=== PATIENT | male | born 1935 | race African-American/Black ===

== ENCOUNTER 2017-07-31 12:51 | Emergency (ER) | payer MEDICARE, BC ==
[~2017-07-31] VITALS: Ht 175.3 cm; Wt 67.6 kg
--- NOTE | ~2017-07-31 | EKG ---
PATIENT: PATITO AMANDA UNIT #: [id number] Ventricular Rate: 69 BPM Atrial Rate: 69 BPM P-R Interval: 186 ms QRS Duration: 98 ms Q-T Interval: 416 ms QTC Calculation(Bezet): 445 ms P [place]: 57 degrees Calculated R [place]: 10 degrees Calculated T [place]: 48 degrees Diagnosis Line: Sinus rhythm with marked sinus arrhythmia Diagnosis Line: Nonspecific T wave abnormality Diagnosis Line: Abnormal ECG Diagnosis Line: When compared with ECG of 15-NOV-2015 12:01, Diagnosis Line: Incomplete right bundle branch block is no longer Diagnosis Line: Present Diagnosis Line: Confirmed by MELODIE NAVARRETE MD ([id number]) on Diagnosis Line: 08/02/2017 10:50:23 AM INTERPRETING MD: ROSALBA PUGH
--- NOTE | ~2017-07-31 | CT71 ---
[facility] A Service of [facility] RADIOLOGY TEXT RESULTS PATIENT: PATITO AMANDA LOCATION: [facility] : 34 UNIT #: [id number] AGE: [address]: Jamie Jc MD SEX: M ORDER DR: [id number] [facility] [address] [place], [place] [address] [id number] E MR#: [id number] Acc #: [id number] NAME: PATITO AMANDA : 1935 SEX: M STUDY DATE/TIME: 07/31/2017 15:12 UNIT: [facility] ROOM: STUDY DESCRIPTION: CT Head Wo Contrast Attending Physician: Jamie Jc M.D. Ordering Physician: Jamie Jc M.D. Primary Care Physician: No Primary Care Physician MEDICAL IMAGING REPORT This report is preliminary unless electronic signature is present EXAM CT of the head without contrast. HISTORY Dizziness and confusion today. COMPARISON 09/05/2010 TECHNIQUE Unenhanced images were obtained through the brain. This CT exam was performed with one or more of the following radiation dose reduction techniques: automatic exposure control, adjustment of mA and/or kV according to patient size, and iterative reconstruction. FINDINGS There is generalized atrophy. Symmetric small vessel ischemic changes. There has been no change. IMPRESSION Stable atrophy and small vessel ischemic changes. No acute abnormalities. Dictated by... Fred Irving M.D. THIS IS AN ELECTRONICALLY VERIFIED REPORT Fred Irving M.D. at 08/01/2017 7:21 AM FEL/mansiw [facility] A Service of [facility] RADIOLOGY TEXT RESULTS PATIENT: PATITO AMANDA LOCATION: [facility] : 34 UNIT #: [id number] AGE: [address]: Jamie Jc MD SEX: M ORDER DR: TD: 08/01/2017 02:52 JOB #: [id number] MEDICAL IMAGING REPORT Page 1 of 1 COPY
--- NOTE | ~2017-07-31 | CR72 ---
[facility] A Service of [facility] RADIOLOGY TEXT RESULTS PATIENT: PATITO AMANDA LOCATION: [facility] : 34 UNIT #: [id number] AGE: [address]: Jamie Jc MD SEX: M ORDER DR: [id number] [facility] [address] [place], [place] [address] [id number] E MR#: [id number] Acc #: [id number] NAME: PATITO AMANDA : 1935 SEX: M STUDY DATE/TIME: 07/31/2017 14:05 UNIT: [facility] ROOM: STUDY DESCRIPTION: CR Chest Single View Portable Attending Physician: Jamie Jc M.D. Ordering Physician: Jamie Jc M.D. Primary Care Physician: No Primary Care Physician MEDICAL IMAGING REPORT This report is preliminary unless electronic signature is present EXAM Chest, portable, 07/31/2017, 1405 hours. CLINICAL HISTORY 81-year-old man complaining of shortness of air and dizziness today. History of hypertension. COMPARISON 11/15/2015 FINDINGS Portable upright chest demonstrates normal heart size with stable tortuous aorta. There are benign calcified lymph nodes at the left hilum. Lungs are hyperinflated but clear. IMPRESSION 1. Normal heart size with stable tortuous aorta. 2. Lungs are hyperinflated with calcified granulomatous changes. No acute cardiopulmonary findings. No appreciable change from 11/15/2015. Dictated by... Melissa Fuchs M.D. THIS IS AN ELECTRONICALLY VERIFIED REPORT Melissa Fuchs M.D. at 08/01/2017 9:26 AM CEDRICM/taylor TD: 08/01/2017 00:16 JOB #: [id number] [facility] A Service [facility] RADIOLOGY TEXT RESULTS PATIENT: PATITO AMANDA LOCATION: [facility] : 34 UNIT #: [id number] AGE: [address]: Jamie Jc MD SEX: M ORDER DR: MEDICAL IMAGING REPORT Page 1 of 1 COPY
[~2017-07-31 12:51] MED LIST: AMLODIPINE BESYL5 MG PO; ANTIVERT PO; ASPIRIN81 M2 PO; FLEXERIL10 MG PO; FLOMAX0.4 M1 PO; HYDROCHLOROTHIA25 MG PO; K-DUR10 MEQ PO; LEVOTHYROXINE50 MCG PO; LIPITOR20 MG PO; NORVASC PO; TENORMIN50 MG PO; XALATAN OP
[2017-07-31 14:27] LABS: BASOPHIL% 0.5 % (0-2.5); EOSINOPHIL# 0.4 X10e3 (0-0.7); EOSINOPHIL% 8.2 % (0.0-7.0); HEMATOCRIT 47.7 % (38.0-50.0); HEMOGLOBIN 15.5 gm/dL (13.0-16.0); LYMPHOCYTE% 20.8 % (17.0-45.0); MEAN CELL VOLUME 86.5 FL (83-96); MEAN CORPUSCULAR HEMOGLOBIN 28.2 PG (28-34); MEAN CORPUSCULAR HGB CONC 32.6 g/dL (30-36); MEAN PLATELET VOLUME 9.2 FL (6.5-11.5); MONOCYTE# 0.3 X10e3 (0-1.0); MONOCYTE% 6.1 % (3.0-12.0); NEUTROPHIL% 64.4 % (40-75); PLATELET COUNT 140 X10e3 (140-420); RED BLOOD COUNT 5.51 X10e (3.90-5.60); RED CELL DISTRIBUTION WIDTH 13.9 % (11.0-15.5); WHITE BLOOD COUNT 4.6 X10e3 (4.0-10.5)
[2017-07-31 14:28] LABS: DIFF IND NO
[2017-07-31 14:37] LABS: POC - CKMB 1.3 ng/mL (0.0-7.9); POC - TROPONIN <0.05 ng/mL (<=0.05)
[2017-07-31 14:47] LABS: ALBUMIN SERUM 4.7 g/dL (3.5-5.0); BILIRUBIN, DIRECT 0.1 mg/dL (0.0-0.2); BILIRUBIN,INDIRECT 0.7 mg/dL (0.0-0.9); BILIRUBIN,TOTAL 0.8 mg/dL (0.2-2.0); CALCIUM SERUM 9.4 mg/dL (8.4-10.2); GLOM FILT RATE Estimated 80.9 mL/min (>60); POTASSIUM 3.4 mmol/L (3.5-5.1); PROTEIN TOTAL SERUM 8.2 g/dL (6.0-8.3)
[2017-07-31 16:12] LABS: URINE SOURCE CLEAN CATCH
[2017-07-31 16:21] LABS: URINE APPEARANCE CLEAR; URINE BILIRUBIN NEG (NEG); URINE BLOOD NEG (NEG); URINE COLOR YELLOW; URINE GLUCOSE NEG (NEG); URINE KETONE NEG (NEG); URINE LEUKOCYTE ESTERASE TRACE (NEG); URINE NITRATE NEG (NEG); URINE PROTEIN NEG (NEG); URINE SPECIFIC GRAVITY 1.005 (1.003-1.035); URINE UROBILINOGEN 0.2 MG/DL (NEG)
[2017-07-31 16:23] LABS: URBCS1 AUWI 0-2 /[HPF] (0-2); URINE BACTERIA AUWI NEG (NEGATIVE); URINE SQUAMOUS EPITHELIAL CELL NONE SEEN /[HPF]; UWBCS1 AUWI 0-2 (0-5)
[2017-07-31 16:27] LABS: CULTURE INDICATED? NO
[2017-07-31 16:31] LABS: POC - CKMB 1.8 ng/mL (0.0-7.9); POC - TROPONIN <0.05 ng/mL (<=0.05)
== END 2017-07-31 17:29 | disposition home or self-care (01) ==
LOC: CED 12:51
PROVIDERS: Emergency Medicine
DX: R42 Dizziness and giddiness (principal); I10 Essential (primary) hypertension
CPT/HCPCS: 36415; 70450; 71010; 80048; 80076; 81003; 82553; 82947; 84443; 84484; 85025; 93005; 99285